=== PATIENT | female | born 1990 | race Caucasian/White ===

== ENCOUNTER 2020-05-31 14:45 | Outpatient (CLI) | payer OTHER, BC ==
[2020-05-31 15:46] LABS: APPEARANCE,URINE CLEAR; BILIRUBIN,URINE NEGATIVE (NEGATIVE); COLOR,URINE YELLOW; GLUCOSE, URINE NEGATIVE (NEGATIVE); KETONES,URINE NEGATIVE (NEGATIVE); LEUKOCYTE ESTERASE,URINE NEGATIVE (NEGATIVE); NITRITE,URINE NEGATIVE (NEGATIVE); PROTEIN,URINE NEGATIVE (NEGATIVE); URINE SPECIFIC GRAVITY 1.014; UROBILINOGEN,URINE NEGATIVE mg/dL (<2.0)
[2020-05-31 16:02] LABS: URINE AMPHETAMINES SCREEN NEGATIVE; URINE BARBITURATES SCREEN NEGATIVE; URINE BENZODIAZEPINES SCREEN NEGATIVE; URINE COCAINE SCREEN NEGATIVE; URINE MARIJUANA (THC) SCREEN NEGATIVE; URINE METHADONE SCREEN NEGATIVE; URINE PHENCYCLIDINE SCREEN NEGATIVE
[2020-05-31 16:06] LABS: UR PRO/CREAT RATIO RESULT 0.2 mg/mg (0.0-0.2); URINE CREATININE 63.8 mg/dL (16-327); URINE PROTEIN 12.8 mg/dL (<12)
[2020-05-31 16:14] LABS: ABSOLUTE EOSINOPHILS # (AUTO) 0.1 10^3/uL (0.0-0.6); ABSOLUTE LYMPHOCYTES (AUTO) 2.1 10^3/uL (0.5-4.7); ABSOLUTE MONOCYTES (AUTO) 0.5 10^3/uL (0.1-1.4); ABSOLUTE NEUT (AUTO) 5.9 10^3/uL (1.7-8.2); BASOPHILS % (AUTO) 0.4 % (0-2); EOSINOPHILS % (AUTO) 0.9 % (0-6); HEMATOCRIT 29.9 % (36.0-47.0); HEMOGLOBIN 10.5 g/dL (12.0-15.5); LYMPHOCYTES % (AUTO) 24.1 % (13-45); MEAN CORPUSCULAR HEMOGLOBIN 28.4 pg (27.0-33.4); MEAN CORPUSCULAR HGB CONC 34.9 g/dL (32.0-36.0); MEAN CORPUSCULAR VOLUME 81 fl (80-97); MONOCYTES % (AUTO) 5.9 % (3-13); PLATELET COUNT 165 10^3/uL (150-450); RED BLOOD COUNT 3.68 10^6/uL (3.72-5.28); SEGMENTED NEUTROPHILS % (AUTO) 68.7 % (42-78); TOTAL CELLS COUNTED % (AUTO) 100 %; WHITE BLOOD COUNT 8.5 10^3/uL (4.0-10.5)
[2020-05-31 16:35] LABS: ALBUMIN 3.6 g/dL (3.5-5.0); ALKALINE PHOSPHATASE 108 U/L (38-126); ANION GAP 5 (5-19); ASPARTATE AMINO TRANSFERASE 20 U/L (14-36); BILIRUBIN,TOTAL 0.6 mg/dL (0.2-1.3); BLOOD UREA NITROGEN 10 mg/dL (7-20); CARBON DIOXIDE 23 mmol/L (22-30); CHLORIDE 105 mmol/L (98-107); GLUCOSE 72 mg/dL (75-110); POTASSIUM 4.3 mmol/L (3.6-5.0); TOTAL PROTEIN 6.6 g/dL (6.3-8.2); URIC ACID 4.5 mg/dL (2.5-6.2)
== END 2020-05-31 17:34 | disposition home or self-care (01) ==
LOC: LC 14:45
PROVIDERS: ATTEND Student in an Organized Health Care Education/Training Program
DX: O13.3 Gestational [pregnancy-induced] hypertension without significant proteinuria, third trimester (principal); Z3A.37 37 weeks gestation of pregnancy
CPT/HCPCS: 36415; 59025; 80053; 80307; 81005; 82570; 83615; 84156; 84550; 85025

== ENCOUNTER 2020-06-02 19:46 | Inpatient (IN) | payer OTHER, BC ==
[2020-06-02] MEDS ORDERED: MAG HYDROX/AL HYDROX/SIMETH SUSP 30 ML UDCUP PO PRN (20:07)
[2020-06-02] MEDS ORDERED: RINGERS SOLUTION,LACTATED 300 ML IV ONE (20:07)
[2020-06-02] MEDS ORDERED: DINOPROSTONE 10 MG VAGINAL INSERT.SR PV ONE (20:07)
[2020-06-02] MEDS ORDERED: ZOLPIDEM TARTRATE 5 MG TABLET PO PRN (20:07)
[2020-06-02] MEDS ORDERED: ACETAMINOPHEN 325 MG TABLET PO PRN (20:07)
[2020-06-02 20:31] LABS: APPEARANCE,URINE SLIGHTLY-CLOUDY; BILIRUBIN,URINE NEGATIVE (NEGATIVE); COLOR,URINE YELLOW; GLUCOSE, URINE 50 mg/dL (NEGATIVE); KETONES,URINE TRACE mg/dL (NEGATIVE); LEUKOCYTE ESTERASE,URINE NEGATIVE (NEGATIVE); NITRITE,URINE NEGATIVE (NEGATIVE); PROTEIN,URINE 100 mg/dL (NEGATIVE); URINE SPECIFIC GRAVITY 1.027; UROBILINOGEN,URINE NEGATIVE mg/dL (<2.0)
[2020-06-02] MEDS ORDERED: DINOPROSTONE 10 MG VAGINAL INSERT.SR ONE (20:35)
[2020-06-02 20:44] LABS: HEMATOCRIT 27.8 % (36.0-47.0); HEMOGLOBIN 9.5 g/dL (12.0-15.5); MEAN CORPUSCULAR HEMOGLOBIN 27.9 pg (27.0-33.4); MEAN CORPUSCULAR HGB CONC 34.2 g/dL (32.0-36.0); MEAN CORPUSCULAR VOLUME 82 fl (80-97); PLATELET COUNT 142 10^3/uL (150-450); RED CELL DISTRIBUTION WIDTH 14.2 % (11.5-14.0)
[2020-06-02 20:48] LABS: URINE AMPHETAMINES SCREEN NEGATIVE; URINE BARBITURATES SCREEN NEGATIVE; URINE BENZODIAZEPINES SCREEN NEGATIVE; URINE COCAINE SCREEN NEGATIVE; URINE MARIJUANA (THC) SCREEN NEGATIVE; URINE METHADONE SCREEN NEGATIVE; URINE PHENCYCLIDINE SCREEN NEGATIVE
[2020-06-03] MEDS: RINGERS SOLUTION,LACTATED 1,000 ML IV PRN ×2 (00:55→11:40)
--- NOTE | 2020-06-03 06:53 | Admission Physical ---
Datetime Report Generated by CPN: 06/03/2020 06:53 CURRENT ADMISSION Chief Complaint: Scheduled Induction of Labor Indication for Induction: Gestational HTN Admit Impression : Term, Intrauterine ; Induction of Labor Admit Plan: Admit to Unit; Initiate Labor Induction Protocol ALLERGIES Medication Allergies: No Medication Allergies: adhesive tape/PA (05/31/2020) Latex: Unknown OBSTETRICAL HISTORY EDC: 06/14/2020 00:00 : 4 Para: 1 Term: 1 : 0 SAB: 2 IAB: 0 Ectopic: 0 Livin Cesareans: 0 VBACs: 0 Multiple Births: 0 Gestational Diabetes: No Rh Sensitization: No Incompetent Cervix: No CLARISSA: No Infertility: No ART Treatment: No Uterine Anomaly: No IUGR: No Hx Previous C/S: No Macrosomia: No Hx Loss/Stillborn: No PIH: Yes Hx : No Placenta Previa/Abruption: No Depression/PP Depression: Yes PTL/PROM: No Post Hemorrhage: No Current Procedures: Ultrasound SEE RECORDS Alcohol: No Marijuana : No Cocaine: No Other Illicit Drugs: No Cigarettes: Never Smoker. [id number] MEDICAL HISTORY Diabetes: No Blood Transfusion: No Pulmonary Disease (Asthma, TB): No Breast Disease: No Hypertension: Yes Form Grader Operator Surgery: No Heart Disease: No Hosp/Surgery: Yes Autoimmune Disorder: No Anesthetic Complications: Yes Kidney Disease: No Abnormal Pap Smear: No Neuro/Epilepsy: No Psychiatric Disorders: No Other Medical Diseases: No Hepatitis/Liver Disease: No Significant Family History: No Varicosities/Phlebitis: No Trauma/Violence : No Thyroid Dysfunction: No Medical History Comments: oral surgery as child; "recovered from anesthesia too fast." No issues with epidural with last . History of depression - previously on Zoloft; discontinued with . INFECTIOUS HISTORY Gonorrhea: No Genital Herpes: No Chlamydia: No Syphilis: No HIV/AIDS Exposure: No HPV: No PHYSICAL EXAM General: Normal HEENT: Normal Neurologic: Normal Thyroid: Normal Heart: Normal Lungs: Normal Breast: Normal Back: Normal Abdomen: Normal Genitourinary Exam: Normal Extremities: Normal DTRs: Normal Pelvic Type: Adequate Vital Signs: Reviewed VAGINAL EXAM Dilatation: 1 Effacement: 25 Station: -3 MEMBRANES Pooling: Negative Membranes: Intact FETUS A EGA: 38.3 Monitoring: External US FHR- Baseline: 150 Variability: Moderate 6-25bpm Accelerations: 15X15 Decelerations: None FHR Category: Category I Estimated Weight (gm): 3200 Presentation: Vertex PLANS FOR LABOR AND DELIVERY Labor and Delivery: None Pain Management: Epidural Feeding Preference: Formula Circumcision: N/A INFORMED CONSENT Signature: with User ID: [email or web address]
[2020-06-03] MEDS ORDERED: MISOPROSTOL 0.2 MG TABLET ONE (07:56)
[2020-06-03] MEDS ORDERED: OXYTOCIN 10 UNIT/ML VIAL ONE (07:56)
[2020-06-03] MEDS ORDERED: LIDOCAINE 1% INJ-PF (10 MG/ML) 30 ML SDV ONE (07:56)
[2020-06-03] MEDS ORDERED: EPHEDRINE SULFATE INJ 50 MG/1 ML AMPULE ONE (07:56)
[2020-06-03] MEDS ORDERED: FENTANYL/BUPIVACAINE/NS/PF 300 MCG/150 ML RTUINJ EPI ONE (07:56)
[2020-06-03] MEDS ORDERED: BUPIVACAINE HCL 0.25 % INJ/PF (2.5 MG/1 ML) 30 ML VIAL ONE (07:57)
[2020-06-03] MEDS ORDERED: OXYTOCIN/0.9 % SODIUM CHLORIDE 30 UNIT/500 ML RTUINJ ONE (07:57)
[2020-06-03] MEDS ORDERED: OXYTOCIN/0.9 % SODIUM CHLORIDE 30 UNIT/500 ML RTUINJ IV PRN (09:00)
[2020-06-03] MEDS ORDERED: DINOPROSTONE 10 MG VAGINAL INSERT.SR PV ONE (18:00)
[2020-06-03] MEDS ORDERED: DINOPROSTONE 10 MG VAGINAL INSERT.SR ONE (18:20)
[2020-06-03] MEDS ORDERED: ZOLPIDEM TARTRATE 5 MG TABLET PO ONE (19:16)
[2020-06-03] MEDS ORDERED: ZOLPIDEM TARTRATE 5 MG TABLET ONE (21:13)
[2020-06-04] MEDS ORDERED: OXYTOCIN/0.9 % SODIUM CHLORIDE 30 UNIT/500 ML RTUINJ ONE (07:48)
[2020-06-04] MEDS ORDERED: DIPHENHYDRAMINE HCL 25 MG CAPSULE PO PRN (14:56)
[2020-06-04] MEDS ORDERED: PROMETHAZINE HCL 25 MG TABLET PO PRN (14:56)
[2020-06-04] MEDS ORDERED: ACETAMINOPHEN WITH CODEINE #3 TABLET PO PRN ×2 (14:56)
[2020-06-04] MEDS ORDERED: BENZOCAINE/MENTHOL AEROSOL SPRAY 56 ML TOP PRN (14:56)
[2020-06-04] MEDS ORDERED: NA PHOS,M-B/NA PHOS,DI-BA (ADULT) 133 ML ENEMA PR PRN (14:56)
[2020-06-04] MEDS ORDERED: OXYTOCIN/0.9 % SODIUM CHLORIDE 30 UNIT/500 ML RTUINJ IV PRN (14:56)
[2020-06-04] MEDS ORDERED: PROMETHAZINE HCL INJ 25 MG/1 ML VIAL IV PRN (14:56)
[2020-06-04] MEDS ORDERED: GLYCERIN/WITCH HAZEL LEAF 1 EACH MED..WIPE TP PRN (14:56)
[2020-06-04] MEDS ORDERED: DIPH/PERTUSS(ACELL)/TETANUS VAC/PF 0.5 ML SYR (>=10YO) IM PRN (14:56)
[2020-06-04] MEDS ORDERED: PSEUDOEPHEDRINE HCL 30 MG TABLET PO PRN (14:56)
[2020-06-04] MEDS ORDERED: MEASLES,MUMPS&RUBELLA VACC/PF 0.5 ML VIAL SUBCUT PRN (14:56)
[2020-06-04] MEDS ORDERED: DIBUCAINE 1% OINTMENT 28 GM TP PRN (14:56)
[2020-06-04] MEDS ORDERED: PROMETHAZINE HCL 25 MG SUPP.RECT PR PRN (14:56)
[2020-06-04] MEDS ORDERED: ZOLPIDEM TARTRATE 5 MG TABLET PO PRN (14:56)
[2020-06-04] MEDS ORDERED: ACETAMINOPHEN 650 MG SUPP.RECT PR PRN (14:56)
[2020-06-04] MEDS ORDERED: MAGNESIUM HYDROXIDE SUSP 30 ML UDCUP PO PRN (14:56)
--- NOTE | 2020-06-04 15:21 | Warning Signs in Babies ---
VOD Warning Signs Datetime Report Generated by [facility]: 06/04/2020 15:21 VOD#[id number] -Warning Signs in Babies: Viewed with Parent(s)/Family (05/31/2020 15:07:Shikha Mercado RN)
--- NOTE | 2020-06-04 15:32 | Delivery Summary ---
Del Sum A-C Datetime Report Generated by CPN: 06/04/2020 15:32 DELIVERY PERSONNEL DELIVERY PERSONNEL: [id number] Delivery Doctor:: Harmony Almonte CNM Labor and Delivery Nurse:: Shikha Mercado RNquarter trimmer Nurse:: OCTAVIA Lanier Nursery Nurse:: Francesca Bright RN Vision Mixer/OIL PLANT OPERATOR: Taylor Davis CNA II Vision Mixer/OIL PLANT OPERATOR: Dickgabriela Velazquez-Larios MATERNAL INFORMATION Delivery Anesthesia: Epidural Medications After Delivery: Pitocin 30 Units in 500ml NS/D5W Meds After Delivery Comment: 200mLs open bolus, then remainder @ 95mLs/hr Delivery QBL: 150 Delivery QBL Comment: 150 Maternal Complications: None Provider Comments: SVDVF ROP over intact perineum. Infant vigorous, to mothers abd. Cord clamped after 2 min, double clamped and cut per FOB. 3VC noted. Placenta spont via Almonte mech with trailing membranes. Bleeding stabilized. Mother and stable. LABOR SUMMARY EDC: 06/14/2020 00:00 No. Babies in Womb: 1 Attempted: No LABOR INFORMATION Reason for Induction: Gestational Hypertension Onset of Labor: 06/04/2020 12:42 Complete Dilatation: 06/04/2020 13:49 Cervical Ripening Agents: Cervidil Oxytocin: Induction Group B Beta Strep: Negative Antibiotics # of Doses: n/a Steroids Given: None Reason Steroids Not Administered: Not Applicable MEMBRANES Membranes Rupture Method: Artificial Rupture of Membranes: 06/04/2020 08:40 Length of Rupture (hr): 5.62 Amniotic Fluid Color: Clear Amniotic Fluid Amount: Small Amniotic Fluid Odor: Normal STAGES OF LABOR Stage 1 hr: 1 Stage 1 min: 7 Stage 2 hr: 0 Stage 2 min: 28 Stage 3 hr: 0 Stage 3 min: 5 Total Time in Labor hr: 1 Total Time in Labor min: 40 VAGINAL DELIVERY Episiotomy: None Laceration #1: None Laceration Extension #1: N/A Laceration Repair: Not Applicable Sponge Count Correct: N/A CSECTION DELIVERY Primary Indication: N/A Secondary Indication: N/A CSection Incidence: N/A Labor: N/A Elective: N/A CSection Incision: N/A BABY A INFORMATION Delivery Date/Time: 06/04/2020 14:17 Method of Delivery: Vaginal Nurse Controlled Delivery: No Born in Route : No : N/A Forceps: N/A Vacuum Extraction: N/A Shoulder Dystocia : No PRESENTATION/POSITION BABY A Presentation: Cephalic Cephalic Presentation: Vertex Vertex Position: Right Occipital Posterior PLACENTA INFORMATION BABY A Placenta Delivery Time : 06/04/2020 14:22 Placenta Method of Delivery: Spontaneous Placenta Status: Delivered SCORES BABY A Heart Rate 1 min: >100 bpm Resp Effort 1 min: Good Cry Reflex Irritability 1 min: Cough or Sneeze or Pulls Away Muscle Tone 1 min: Some Flexion of Extremities Color 1 min: Body Bras[place], Extremities Blue SCORE 1 MIN: 8 Heart Rate 5 min: >100 bpm Resp Effort 5 min: Good Cry Reflex Irritability 5 min: Cough or Sneeze or Pulls Away Muscle Tone 5 min: Active Motion Color 5 min: Body Bras[place]ar, Extremities Blue SCORE 5 MIN: 9 INFANT INFORMATION BABY A Gestational Age at Delivery: 38.4 Gestational Status: Early Term- 37- 38.6 Weeks Infant Outcome : Liveborn Condition : Stable Infant Sex: Female IDENTIFICATION BABY A Verification Date/Time: 06/04/2020 14:34 ID Band Number: [id number] Mother's Name Verified: Yes RN Verifying : Jodee MercadoYASSINE Additional Verifying Personnel: Haley Davis CNA II WEIGHT/LENGTH BABY A Birthweight (gm): 3279 Weight (lb): 7 Weight (oz): 4 Length (in): 19.75 Infant Length (cm): 50.17 CORD INFORMATION BABY A No. Cord Vessels: 3 Nuchal Cord : N/A Cord Blood Taken: Yes-For Eval (Mom's Blood Type - or O+) Suction: None; Mouth ASSESSMENT BABY A Complications: None Physical Findings at Delivery: Caput Succedaneum Respirations: Appears Normal Skin to Skin: Yes Skin to Skin Time (min): 60 Pin Or Clip Fastener/ALS Called : No Care By: ACady Deangelo, RN Transferred To: Remains with Mother BABY B INFORMATION : N/A SIGNATURES Assignment: Sophia Roth MD Signature: with User ID: [email or web address] : with User ID: [email or web address] : I was personally available for consultation and serving as supervising physician for the MLP.
[2020-06-04] MEDS ORDERED: BENZOCAINE/MENTHOL AEROSOL SPRAY 56 ML ONE (15:57)
[2020-06-04] MEDS: FERROUS SULFATE 325 MG TABLET PO SCH (17:27)
[2020-06-04] MEDS: DOCUSATE SODIUM 100 MG CAPSULE PO SCH (17:27)
[2020-06-04] MEDS: IBUPROFEN 800 MG TABLET PO SCH (21:38)
[2020-06-04] MEDS: FAMOTIDINE 20 MG TABLET PO SCH (21:38)
[2020-06-05] MEDS: IBUPROFEN 800 MG TABLET PO SCH ×3 (05:30→21:40)
[2020-06-05 06:39] LABS: HEMATOCRIT 24.9 % (36.0-47.0); HEMOGLOBIN 8.5 g/dL (12.0-15.5); MEAN CORPUSCULAR HEMOGLOBIN 27.8 pg (27.0-33.4); MEAN CORPUSCULAR VOLUME 82 fl (80-97); PLATELET COUNT 119 10^3/uL (150-450); RED BLOOD COUNT 3.04 10^6/uL (3.72-5.28); RED CELL DISTRIBUTION WIDTH 14.3 % (11.5-14.0); WHITE BLOOD COUNT 7.2 10^3/uL (4.0-10.5)
[2020-06-05] MEDS: PRENATAL VITAMIN W DHA CAPSULE PO SCH (09:22)
[2020-06-05] MEDS: DOCUSATE SODIUM 100 MG CAPSULE PO SCH ×2 (09:22→18:04)
[2020-06-05] MEDS: FAMOTIDINE 20 MG TABLET PO SCH ×2 (09:22→21:40)
[2020-06-05] MEDS: FERROUS SULFATE 325 MG TABLET PO SCH ×2 (09:22→18:04)
[2020-06-05] MEDS: SENNOSIDES/DOCUSATE 8.6-50 MG 1 EACH TABLET PO SCH (09:22)
--- NOTE | 2020-06-05 12:53 | PDOC PROGRESS REPORT ---
Subjective-OB Progress Note for:: 06/05/20 Subjective: 29yo G4 now P2 s/p r ppd 1. Pt ambulating and voiding without difficulty. Denies any concerns today, reports pain well controlled with medication. Physical Exam (OB) Vital Signs: Temp Pulse Resp BP Pulse Ox 97.9 F 72 16 142/88 H 100 06/05/20 08:11 06/05/20 08:11 06/05/20 08:11 06/05/20 08:11 06/05/20 08:11 Intake & Output 06/04/20 06/05/20 06/06/20 06:59 06:59 06:59 Intake Total 1000 600 Balance 1000 600 - General General Appearance: Appears well In distress: None - PIH/Pre-Eclampsia DTR's: 3 + Clonus: Negative Headache: Absent Epigastric Pain: No Visual Changes: No - Episiotomy/Laceration Site Condition: N/A - Lochia Lochia Amount: Scant < 10 ml Lochia Color: Rubra/Red - Abdomen Description: Soft Hernia Present: No Fundal Description: Firm, Midline Fundal Height: u/u - u/2 - Respiratory Respiratory Status: No respiratory distress - Extremities Upper extremity: Normal inspection Lower extremities: Normal inspection - Neurological Cognition: Normal Orientation: AAOx4 - Psychological Associated symptoms: Normal affect, Normal mood Objective-Diagnostic Laboratory: 06/05/20 06:04 06/05/20 06:04 WBC 7.2 RBC 3.04 L Hgb 8.5 L Hct 24.9 L MCV 82 MCH 27.8 MCHC 34.0 RDW 14.3 H Plt Count 119 L Assessment and Plan(PN) - Assessment and Plan (1) Anemia complicating , third trimester Is this a current diagnosis for this admission?: Yes Plan: increase dietary iron and FeSO4 bid (2) History of depression Is this a current diagnosis for this admission?: Yes Plan: continue to monitor for s/s of depression (3) Vaginal delivery Is this a current diagnosis for this admission?: Yes Plan: routine pp care (4) Gestational hypertension Qualifiers: Trimester: third trimester Qualified Code(s): O13.3 - Gestational [-induced] hypertension without significant proteinuria, third trimester Is this a current diagnosis for this admission?: Yes Plan: delivered,continue to monitor for s/s of post pre-e. Pt reports HTN for one month after last delivery. Mild BPs since delivery, consider anti Hypertensives as needed denies any other s/s (5) Thrombocytopenia affecting Is this a current diagnosis for this admission?: Yes Plan: reviewed warning s/s will repeat CBC in the am. Pt verbalized understanding - Time Spent with Patient Time with patient: Less than 15 minutes Medications reviewed and adjusted accordingly: Yes - Disposition Anticipated Discharge: Home Within: within 24 hours
[2020-06-06] MEDS: IBUPROFEN 800 MG TABLET PO SCH ×2 (05:55→13:03)
[2020-06-06 06:53] LABS: HEMATOCRIT 26.2 % (36.0-47.0); HEMOGLOBIN 8.9 g/dL (12.0-15.5); MEAN CORPUSCULAR HGB CONC 33.9 g/dL (32.0-36.0); MEAN CORPUSCULAR VOLUME 82 fl (80-97); PLATELET COUNT 112 10^3/uL (150-450); RED BLOOD COUNT 3.18 10^6/uL (3.72-5.28); RED CELL DISTRIBUTION WIDTH 14.3 % (11.5-14.0); WHITE BLOOD COUNT 5.7 10^3/uL (4.0-10.5)
[2020-06-06 08:03] VITALS: BP 131/80
[2020-06-06] MEDS: FERROUS SULFATE 325 MG TABLET PO SCH (09:42)
[2020-06-06] MEDS: PRENATAL VITAMIN W DHA CAPSULE PO SCH (09:42)
[2020-06-06] MEDS: FAMOTIDINE 20 MG TABLET PO SCH (09:42)
[2020-06-06] MEDS: DOCUSATE SODIUM 100 MG CAPSULE PO SCH (09:42)
[2020-06-06] MEDS: SENNOSIDES/DOCUSATE 8.6-50 MG 1 EACH TABLET PO SCH (09:42)
--- NOTE | 2020-06-06 10:12 | PDOC PROGRESS REPORT ---
Subjective-OB Progress Note for:: 06/06/20 Subjective: Doing well, no c/o, ready to go home, tolerating low H&H, normal lochia, Physical Exam (OB) Vital Signs: Temp Pulse Resp BP Pulse Ox 97.5 F 73 18 131/80 H 100 06/06/20 07:20 06/06/20 07:20 06/06/20 07:20 06/06/20 07:20 06/06/20 07:20 Intake & Output 06/05/20 06/06/20 06/07/20 06:59 06:59 06:59 Intake Total 600 500 Balance 600 500 - PIH/Pre-Eclampsia DTR's: 3 + Clonus: Negative Headache: Absent Epigastric Pain: No Visual Changes: No - Lochia Lochia Amount: Scant < 10 ml Lochia Color: Rubra/Red - Abdomen Description: Soft Hernia Present: No Fundal Description: Firm, Midline Fundal Height: u/u - u/2 Objective-Diagnostic Laboratory: 06/06/20 06:04 06/06/20 06:04 WBC 5.7 RBC 3.18 L Hgb 8.9 L Hct 26.2 L MCV 82 MCH 28.0 MCHC 33.9 RDW 14.3 H Plt Count 112 L Assessment and Plan(PN) - Assessment and Plan (1) Anemia complicating , third trimester Is this a current diagnosis for this admission?: Yes (2) History of depression Is this a current diagnosis for this admission?: Yes (3) Thrombocytopenia affecting Is this a current diagnosis for this admission?: Yes (4) Vaginal delivery Is this a current diagnosis for this admission?: Yes (5) Gestational hypertension Qualifiers: Trimester: third trimester Qualified Code(s): O13.3 - Gestational [-induced] hypertension without significant proteinuria, third trimester Is this a current diagnosis for this admission?: Yes - Time Spent with Patient Time with patient: Less than 15 minutes Medications reviewed and adjusted accordingly: Yes - Disposition Anticipated Discharge: Home Within: within 24 hours
--- NOTE | 2020-06-06 10:16 | PDOC DISCHARGE SUMMARY ---
Impression - Admit/DC Date/PCP Admission Date/Primary Care Provider: 06/02/20 19:46 Discharge Date: 06/06/20 - Discharge Diagnosis (1) Anemia complicating , third trimester Is this a current diagnosis for this admission?: Yes (2) History of depression Is this a current diagnosis for this admission?: Yes (3) Thrombocytopenia affecting Is this a current diagnosis for this admission?: Yes (4) Vaginal delivery Is this a current diagnosis for this admission?: Yes (5) Gestational hypertension Is this a current diagnosis for this admission?: Yes - Additional Information Resuscitation Status: Full Code Discharge Diet: As Tolerated, Regular Discharge Activity: Activity As Tolerated, No Lifting Over 10 Pounds, No Lifting/Push/Pulling, Pelvic Rest Referrals: JORJE DUBOIS MD [ACTIVE STAFF] - Home Medications: Vits96/Iron Fum/Folic [ Tablet] 1 each PO DAILY 05/31/20 HPI Gestational Age: 38.4 Reason(s) for Admission: Induction of Labor, PIH Procedures: NST, Ultrasound Intrapartum Procedure(s): Spontaneous Vaginal Delivery Hospital Course Hospital Course: routine Results Laboratory Results: WBC 5.7 10^3/uL (4.0-10.5) 06/06/20 06:04 RBC 3.18 10^6/uL (3.72-5.28) L 06/06/20 06:04 Hgb 8.9 g/dL (12.0-15.5) L 06/06/20 06:04 Hct 26.2 % (36.0-47.0) L 06/06/20 06:04 MCV 82 fl (80-97) 06/06/20 06:04 MCH 28.0 pg (27.0-33.4) 06/06/20 06:04 MCHC 33.9 g/dL (32.0-36.0) 06/06/20 06:04 RDW 14.3 % (11.5-14.0) H 06/06/20 06:04 Plt Count 112 10^3/uL (150-450) L 06/06/20 06:04 Urine Color YELLOW 06/02/20 20:00 Urine Appearance SLIGHTLY-CLOUDY 06/02/20 20:00 Urine pH 6.0 (5.0-9.0) 06/02/20 20:00 Ur Specific Mccleary 1.027 06/02/20 20:00 Urine Protein 100 mg/dL (NEGATIVE) H 06/02/20 20:00 Urine Glucose (UA) 50 mg/dL (NEGATIVE) H 06/02/20 20:00 Urine Ketones TRACE mg/dL (NEGATIVE) H 06/02/20 20:00 Urine Blood NEGATIVE (NEGATIVE) 06/02/20 20:00 Urine Nitrite NEGATIVE (NEGATIVE) 06/02/20 20:00 Urine Bilirubin NEGATIVE (NEGATIVE) 06/02/20 20:00 Urine Urobilinogen NEGATIVE mg/dL (<2.0) 06/02/20 20:00 Ur Leukocyte Esterase NEGATIVE (NEGATIVE) 06/02/20 20:00 Urine Ascorbic Acid 20 (NEGATIVE) H 06/02/20 20:00 Urine Opiates Screen NEGATIVE 06/02/20 20:00 Urine Methadone Screen NEGATIVE 06/02/20 20:00 Ur Barbiturates Screen NEGATIVE 06/02/20 20:00 Ur Phencyclidine Scrn NEGATIVE 06/02/20 20:00 Ur Amphetamines Screen NEGATIVE 06/02/20 20:00 U Benzodiazepines Scrn NEGATIVE 06/02/20 20:00 Urine Cocaine Screen NEGATIVE 06/02/20 20:00 U Marijuana (THC) Screen NEGATIVE 06/02/20 20:00 RPR NONREACTIVE (NONREACTIVE) 06/02/20 20:23 Blood Type O POSITIVE 06/02/20 20:35 Antibody Screen NEGATIVE 06/02/20 20:35 Plan Health Concerns: BP Plan of Treatment: reviewed instructions, take BP at home Goals: no complications Time Spent: Less than 30 Minutes
== END 2020-06-06 13:22 | disposition home or self-care (01) | DRG 806 ==
LOC: LR 19:46 → 2S 06-04 16:24
PROVIDERS: ADMIT Obstetrics & Gynecology; ATTEND Obstetrics & Gynecology
PROC: 10E0XZZ Delivery of Products of Conception, External Approach (ICD-10-PCS; principal; 2020-06-04)
PROC: 3E0234Z Introduction of Serum, Toxoid and Vaccine into Muscle, Percutaneous Approach (ICD-10-PCS; 2020-06-06)
DX: O13.4 Gestational [pregnancy-induced] hypertension without significant proteinuria, complicating childbirth (principal); O99.12 Other diseases of the blood and blood-forming organs and certain disorders involving the immune mechanism complicating childbirth; Z37.0 Single live birth; O99.344 Other mental disorders complicating childbirth; F32.9 Major depressive disorder, single episode, unspecified; Z3A.38 38 weeks gestation of pregnancy; Z23 Encounter for immunization
CPT/HCPCS: 1967; 36415; 80307; 81005; 85027; 86592; 86850; 86900; 86901; 90707; C1758; J2590; J3010; J3490